=== PATIENT | female | born 1980 | race Caucasian/White ===

== ENCOUNTER → 2021-06-21 | Outpatient (CLI) | payer BC ==
[~2021-06-21] MED LIST: FLINTSTONES COM1 CT1 PO; IBU600 MG PO; LOTEMAX 5 ML 5 M5 ML OD; PATADAY 2.5 ML2.5 ML OU; PERCOCET 325 MG1 TA2 PO; PRENATAL1 TA1 PO
== END ==
LOC: MC.RAD 14:08
DX: Z12.31 Encounter for screening mammogram for malignant neoplasm of breast (principal)

== ENCOUNTER → 2023-04-26 | Outpatient (CLI) | payer BC | LOC: CANSCHCLI → MC.RAD 12:43 → COL.RAD 12:43 → MC.RAD 13:00 | DX: Z12.31 Encounter for screening mammogram for malignant neoplasm of breast (principal) ==